=== PATIENT | female | born 1955 | race Caucasian/White ===

== ENCOUNTER → 2024-06-16 | Outpatient (CLI) | payer MEDICARE ==
--- NOTE | 2024-06-16 13:31 | MR ---
EXAMINATION TYPE: MR cervical spine wo con DATE OF EXAM: 06/16/2024 1:25 PM COMPARISON: None. CLINICAL INDICATION: Female, 69 years old with history of M50.30 OTHER CERVICAL DISC DEGENERATION, UN SP CERV, Neck pain into upper extremities TECHNIQUE: Multiplanar MultiSpin echo imaging of the cervical spine was performed. FINDINGS: C2-C3: No evidence for degenerative disc disease. No disc bulge/herniation or protrusion. No Canal stenosis. Foramina are patent bilaterally. C3-C4: No evidence for degenerative disc disease. No disc bulge/herniation or protrusion. No Canal stenosis. Foramina are patent bilaterally. C4-C5: Severe disc desiccation with posterior disc bulge and ventral spondylosis. Reversal of normal cervical lordosis at this level. Effacement of the ventral thecal sac constriction of the thecal sac however there is no definite central stenosis. There is moderate foraminal encroachment left greater than right. C5-C6: Severe disc desiccation with posterior disc bulge and ventral spondylosis. Reversal of normal cervical lordosis at this level. Effacement of the ventral thecal with mild central stenosis difficul t to exclude. Severe left-sided foraminal encroachment with moderate right-sided encroachment seen. C6-C7: Severe disc desiccation with posterior disc bulge and ventral spondylosis. Reversal of normal cervical lordosis at this level. Effacement of the ventral thecal sac constriction of the thecal sac however there is no definite central stenosis. There is moderate foraminal encroachment left greater than right. C7-T1: No evidence for degenerative disc disease. No disc bulge/herniation or protrusion. No Canal stenosis. Foramina are patent bilaterally. Cervical segments are intact. There is normal alignment. Cervical spinal cord is of normal signal. Craniovertebral junction relationships are within normal limits. IMPRESSION: 1. Multilevel degenerative disc disease with mild central stenosis at C5-6. There are degrees of fora star encroachment. Reversal of the normal cervical lordosis. Ventral spondylosis. [facility], , 06/16/2024 1:29 PM
== END | disposition home or self-care (01) ==
LOC: RADMRIMAIN 12:49
PROVIDERS: ATTEND Family Medicine
DX: M48.02 Spinal stenosis, cervical region (principal); M47.812 Spondylosis without myelopathy or radiculopathy, cervical region; M50.321 Other cervical disc degeneration at C4-C5 level
CPT/HCPCS: 72141